=== PATIENT | male | born 1980 | race Hispanic/Latino ===

== ENCOUNTER 2016-11-07 04:48 | Emergency (ER) | payer SELFPAY ==
[~2016-11-07] VITALS: Ht 170.2 cm; Wt 82.2 kg
[2016-11-07 05:41] LABS: INFLUENZA A NONE DETECTED (NONE DETECT); INFLUENZA B NONE DETECTED (NONE DETECT)
[2016-11-07] MEDS ORDERED: AMOXICILLIN500 MG PO (07:16)
[2016-11-07] MEDS ORDERED: ROBITUSSIN AC10 ML PO (07:16)
[2016-11-07 07:18] VITALS: BP 120/79
== END 2016-11-07 07:24 | disposition home or self-care (01) | DRG 153 ==
LOC: ED 04:48
PROVIDERS: Emergency Medicine
DX: J02.9 Acute pharyngitis, unspecified (principal); J06.9 Acute upper respiratory infection, unspecified; R05 Cough; R50.9 Fever, unspecified